=== PATIENT | male | born 1990 | race Caucasian/White ===

== ENCOUNTER 2020-07-23 15:56 | Emergency (ER) | payer OTHER ==
[2020-07-23] MEDS ORDERED: SODIUM CHLORIDE 1,000 ML IV STA ×2 (16:13→16:56)
[2020-07-23] MEDS ORDERED: ACETAMINOPHEN 1000 MG/100 ML VIAL (NON FORMULARY) IVPB ONE (16:13)
--- NOTE | 2020-07-23 16:16 | PDOC ---
History of Present Illness - General History Source: Patient Exam Limitations: No Limitations - History of Present Illness Initial Comments: 29 year old male with no PMH, no surgical history presented to ED for abdominal pain + diarrhea x4 days. Pt reported he developed diarrhea and diffuse abdominal pain, crampy/waxing/waning, no alleviating or aggravating factors, no radiation on monday morning. He reported he had a fever of 101F on Monday AM, but has not had a fever since Monday. Pt denied travel, antibiotic use, sick contacts. 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 Pt finished a course of Augmentin x2 weeks ago for a sinus infection. ROS General: admitted to fever. denied chills, generalized weakness. HEENT: denied sore throat, rhinorrhea, ear pain. Cardiovascular: denied chest pain, palpitations, syncope, diaphoresis. Respiratory: denied shortness of breath, cough, sputum production, hemoptysis. Gastrointestinal: admitted to abdominal pain, diarrhea. denied nausea, vomiting, diarrhea, constipation, blood in stool. Genitourinary: denied dysuria, increased urinary frequency, hematuria, urinary incontinence, flank pain. Back: denied back pain. Musculoskeletal: denied joint pain, muscle pain, joint swelling. Neurological: denied headache, dizziness, numbness, tingling, weakness. Integumentary: denied rash, laceration, abrasion. Hematologic/Lymphatic: denied bruising or bleeding. PE Constitutional: Well-nourished, Well-developed, appearing stated age. HEENT: head is normocephalic, atraumatic. EOMI. PERRLA. Neck: supple. Full ROM. Cardiovascular: regular heart rhythm. Normal S1 and S2. no murmurs. no pericardial friction rub. Respiratory: clear to auscultation bilaterally. no crackles, rhonchi or wheezing. no stridor. Gastrointestinal: soft, flat, diffusely tender. normal bowel sounds. no rebound, guarding, or masses. Extremities: peripheral pulses intact and equal. no lower extremity edema noted. Neurological: CN 2-12 grossly intact. moves all four extremities. Psych: awake, alert, oriented x3. follows commands. answers questions appropriately. <Estelita Mattson - Last Filed: 07/23/20 18:49> <Giovanna Arshad - Last Filed: 07/23/20 20:01> - General Chief Complaint: Pain Stated Complaint: ABD PAIN Time Seen by Provider: 07/23/20 16:01 Past History <Estelita Mattson - Last Filed: 07/23/20 18:49> <Giovanna Arshad - Last Filed: 07/23/20 20:01> - Medical History Allergies/Adverse Reactions: Allergies Allergy/AdvReac Type Severity Reaction Status Date / Time Sulfa (Sulfonamide Allergy Unknown Verified 07/23/20 15:59 Antibiotics) Home Medications: Ambulatory Orders Cetirizine HCl [Zyrtec] 10 mg PO DAILY 07/23/20 Ciprofloxacin HCl [Cipro] 500 mg PO BID 7 Days #14 tablet 07/23/20 Finasteride 1 mg PO DAILY 07/23/20 metroNIDAZOLE [Flagyl -] 500 mg PO QID #28 tablet 07/23/20 *Physical Exam - Vital Signs Last Vital Signs Temp Pulse Resp BP Pulse Ox 98.6 F 62 16 133/78 100 07/23/20 15:58 07/23/20 15:58 07/23/20 15:58 07/23/20 15:58 07/23/20 15:58 <Giovanna Arshad - Last Filed: 07/23/20 20:01> ED Treatment Course - LABORATORY CBC & Chemistry Diagram: 07/23/20 16:20 07/23/20 16:20 - RADIOLOGY Radiology Studies Ordered: Category Date Time Status ABDOMEN & PELVIS CT WITH CONTR [CT] Stat CT Scan 07/23/20 16:13 Ordered <Estelita Mattson - Last Filed: 07/23/20 18:49> - LABORATORY CBC & Chemistry Diagram: 07/23/20 16:20 07/23/20 16:20 - ADDITIONAL ORDERS Additional order review: Laboratory Results 07/23/20 07/23/20 17:15 16:20 Sodium 138 Potassium 3.9 Chloride 104 Carbon Dioxide 24 Anion Gap 10 BUN 12.0 Creatinine 0.9 Est GFR (CKD-EPI)AfAm 134.24 Est GFR (CKD-EPI)NonAf 115.82 Random Glucose 94 Calcium 9.3 Phosphorus 2.6 Magnesium 1.7 L Total Bilirubin 1.1 H AST 14 L ALT 13 Alkaline Phosphatase 45 Total Protein 6.9 Albumin 4.4 Lipase 49 L Urine Color Yellow Urine Appearance Clear Urine pH 7.0 Urine Protein Negative Urine Glucose (UA) Negative Urine Ketones Negative Urine Blood Trace-intact Urine Nitrite Negative Urine Bilirubin Negative Urine Urobilinogen 0.2 Ur Leukocyte Esterase Negative Urine RBC 0-2 07/23/20 16:20 RBC 4.70 MCV 86.6 MCHC 33.3 RDW 12.3 MPV 8.6 Neutrophils % 64.5 Lymphocytes % 14.6 Monocytes % 16.1 H Eosinophils % 4.2 Basophils % 0.6 - Medications Given in the ED: ED Medications Discontinued Medications Generic Name Dose Route Start Last Admin Trade Name Jwq PRN Reason Stop Dose Admin Acetaminophen 1,000 mg 07/23/20 16:13 07/23/20 16:45 Ofirmev Injection - IVPB 07/23/20 16:14 1,000 mg ONCE ONE Administration Sodium Chloride 1,000 mls @ 1,000 mls/hr 07/23/20 16:13 07/23/20 16:25 Normal Saline - IV 07/23/20 17:12 1,000 mls/hr ASDIR STA Administration Sodium Chloride 1,000 mls @ 1,000 mls/hr 07/23/20 16:56 07/23/20 17:35 Normal Saline - IV 07/23/20 17:55 1,000 mls/hr ASDIR STA Administration <Giovanna Arshad - Last Filed: 07/23/20 20:01> Medical Decision Making - Medical Decision Making 29 year old male with above PMH presented to ED for abdominal pain + diarrhea. Initial Vital Signs Temp Pulse Resp BP Pulse Ox 98.6 F 62 16 133/78 100 07/23/20 15:58 07/23/20 15:58 07/23/20 15:58 07/23/20 15:58 07/23/20 15:58 Orders Tylenol IV 1000 mg once Normal saline bolus [address] abdomen/pelvis + IV contrast Laboratory Last Values WBC 5.8 K/mm3 (4.0-10.8) 07/23/20 16:20 RBC 4.70 M/mm3 (4.00-5.60) 07/23/20 16:20 Hgb 13.6 GM/dl (11.7-16.9) 07/23/20 16:20 Hct 40.7 % (35.4-49) 07/23/20 16:20 MCV 86.6 fl (80-96) 07/23/20 16:20 MCH 28.9 pg (25.7-33.7) 07/23/20 16:20 MCHC 33.3 g/dl (32.0-35.9) 07/23/20 16:20 RDW 12.3 % (11.9-15.9) 07/23/20 16:20 Plt Count 145 K/MM3 (134-434) 07/23/20 16:20 MPV 8.6 fl (7.5-11.1) 07/23/20 16:20 Absolute Neuts (auto) 3.9 K/mm3 07/23/20 16:20 Neutrophils % 64.5 % (42.8-82.8) 07/23/20 16:20 Lymphocytes % 14.6 % (8-40) 07/23/20 16:20 Monocytes % 16.1 % (3.8-10.2) H 07/23/20 16:20 Eosinophils % 4.2 % (0-4.5) 07/23/20 16:20 Basophils % 0.6 % (0-2.0) 07/23/20 16:20 Sodium 138 mmol/L (136-145) 07/23/20 16:20 Potassium 3.9 mmol/L (3.5-5.1) 07/23/20 16:20 Chloride 104 mmol/L (98-107) 07/23/20 16:20 Carbon Dioxide 24 mmol/L (21-32) 07/23/20 16:20 Anion Gap 10 MMOL/L (8-16) 07/23/20 16:20 BUN 12.0 mg/dl (7-18) 07/23/20 16:20 Creatinine 0.9 mg/dl (0.55-1.3) 07/23/20 16:20 Est GFR (CKD-EPI)AfAm 134.24 07/23/20 16:20 Est GFR (CKD-EPI)NonAf 115.82 07/23/20 16:20 Random Glucose 94 mg/dl (74-106) 07/23/20 16:20 Calcium 9.3 mg/dl (8.5-10) 07/23/20 16:20 Phosphorus 2.6 mg/dl (2.5-4.9) 07/23/20 16:20 Magnesium 1.7 mg/dL (1.8-2.4) L 07/23/20 16:20 Total Bilirubin 1.1 mg/dl (0.2-1) H 07/23/20 16:20 AST 14 U/L (15-37) L 07/23/20 16:20 ALT 13 U/L (13-61) 07/23/20 16:20 Alkaline Phosphatase 45 U/L (45-117) 07/23/20 16:20 Total Protein 6.9 g/dl (6.4-8.2) 07/23/20 16:20 Albumin 4.4 g/dl (3.4-5.0) 07/23/20 16:20 Urine Color Yellow 07/23/20 17:15 Urine Appearance Clear 07/23/20 17:15 Urine pH 7.0 (4.5-8) 07/23/20 17:15 Urine Protein Negative (NEGATIVE) 07/23/20 17:15 Urine Glucose (UA) Negative (NEGATIVE) 07/23/20 17:15 Urine Ketones Negative (NEGATIVE) 07/23/20 17:15 Urine Blood Trace-intact (NEGATIVE) 07/23/20 17:15 Urine Nitrite Negative (NEGATIVE) 07/23/20 17:15 Urine Bilirubin Negative (NEGATIVE) 07/23/20 17:15 Urine Urobilinogen 0.2 (0.2-1.0) 07/23/20 17:15 Ur Leukocyte Esterase Negative (NEGATIVE) 07/23/20 17:15 Urine RBC 0-2 /hpf (0-4) 07/23/20 17:15 No leukocytosis. No anemia. Elevated monocytes. No KEVIN. Borderline low mag, 2L normal saline given. No transaminitis. Negative for UTI and hematuria. Pending CT scan and dispo. <Estelita Mattson - Last Filed: 07/23/20 18:49> Discharge - Discharge Information Problems reviewed: Yes <Estelita Mattson - Last Filed: 07/23/20 18:49> - Discharge Information Problems reviewed: Yes - Admission No <Giovanna Arshad - Last Filed: 07/23/20 20:01> - Discharge Information Clinical Impression/Diagnosis: Diarrhea Qualifiers: Diarrhea type: unspecified type Qualified Code(s): R19.7 - Diarrhea, unspecified Condition: Good Disposition: HOME - Additional Discharge Information Prescriptions: Ciprofloxacin HCl [Cipro] 500 mg PO BID 7 Days #14 tablet metroNIDAZOLE [Flagyl -] 500 mg PO QID #28 tablet - Patient Discharge Instructions Patient Printed Discharge Instructions: DI for Diarrhea and Traveler's Diarrhea -- Adult Additional Instructions: you came to the Ed for diarrhea. We did a cat scan in the Ed which shows colitis, which we will treat with antibiotics. You should return to the Ed for severe pain, fever, nausea or vomiting, new or worsening symptoms. - Post Discharge Activity Work/Back to School Note: Back to Work
[2020-07-23 16:39] VITALS: BP 133/78; PULSE 62; TEMP 98.6; BMI 23.1
[2020-07-23 16:42] LABS: BASO % 0.6 % (0-2.0); EOS % 4.2 % (0-4.5); HEMATOCRIT 40.7 % (35.4-49); HEMOGLOBIN 13.6 GM/dl (11.7-16.9); LYMPH % 14.6 % (8-40); MCH 28.9 pg (25.7-33.7); MCHC 33.3 g/dl (32.0-35.9); MEAN CELL VOLUME 86.6 fl (80-96); MEAN PLT VOLUME 8.6 fl (7.5-11.1); MONO % 16.1 % (3.8-10.2); NEUT % 64.5 % (42.8-82.8); PLATELET COUNT 145 K/MM3 (134-434); RDW 12.3 % (11.9-15.9); WHITE BLOOD COUNT 5.8 K/mm3 (4.0-10.8)
[2020-07-23] MEDS ORDERED: ACETAMINOPHEN INJECTION 100 ML IVPB ONE (16:42)
[2020-07-23 16:52] LABS: ALBUMIN 4.4 g/dl (3.4-5.0); BILIRUBIN,TOTAL 1.1 mg/dl (0.2-1); CALCIUM 9.3 mg/dl (8.5-10); CREATININE 0.9 mg/dl (0.55-1.3); MAGNESIUM 1.7 mg/dL (1.8-2.4); PHOSPHOROUS 2.6 mg/dl (2.5-4.9); POTASSIUM 3.9 mmol/L (3.5-5.1); TOT PROT 6.9 g/dl (6.4-8.2)
--- NOTE | 2020-07-23 17:13 | PDOC ---
Attending Attestation - Resident Resident Name: Estelita Mattson - ED Attending Attestation I have performed the following: I have examined & evaluated the patient, The case was reviewed & discussed with the resident, I agree w/resident's findings & plan - HPI HPI: 07/23/20 17:10 healthy 29y/o M p/w int abd pain and diarrhea for 5 days. had fever 101 on day 1, no fever since. reports generalized crampy abd pain followed by loose, mucousy non-bloody diarrhea then resolution of pain. no constant pain, no recent travel/diet change/sick contacts. completed course of amoxicillin 1-2 weeks ago for eye trauma? no h/o cdiff, no fam h/o IBD, no personal h/o gi issues. pt received outpt covid swab 3d ago after being febrile on day 1 and it was negative - Physicial Exam PE: 07/23/20 17:11 vss, afebrile well appearing, nad, mmm s1s2 rrr, ctab soft/nd. diffuse ttp without guarding/rebound/mass/hernia no rash - Medical Decision Making 07/23/20 17:12 29y/o M with abd pain/diarrhea for 4-5d, vss and non-toxic appearing without focal peritoneal findings. ? enteritis v colitis, infectious v inflammatory. labs ctap ivf, pain control reassess and dispo accordingly 07/23/20 18:04 labs wnl, no leukocytosis. ua clear lipase pending ctap pending 07/23/20 18:51 feels much better. ctap pending: is candidate for d/c +/- abx pending ct results. Patient was signed out to the oncoming ED physician to follow-up the results, reassess the patient, and disposition accordingly. <Jonny Castillo - Last Filed: 07/23/20 18:51> Discharge - Discharge Information Problems reviewed: Yes <Jonny Castillo - Last Filed: 07/23/20 18:51> - Admission No <Giovanna Arshad - Last Filed: 07/23/20 20:12> - Discharge Information Clinical Impression/Diagnosis: Diarrhea Qualifiers: Diarrhea type: unspecified type Qualified Code(s): R19.7 - Diarrhea, unspecified Condition: Good Disposition: HOME - Additional Discharge Information Prescriptions: Ciprofloxacin HCl [Cipro] 500 mg PO BID 7 Days #14 tablet metroNIDAZOLE [Flagyl -] 500 mg PO QID #28 tablet - Follow up/Referral Referrals: Daya Gonzalez MD [Staff Physician] - - Patient Discharge Instructions Patient Printed Discharge Instructions: DI for Diarrhea and Traveler's Diarrhea -- Adult Additional Instructions: you came to the Ed for diarrhea. We did a cat scan in the Ed which shows colitis, which we will treat with antibiotics. You should return to the Ed for severe pain, fever, nausea or vomiting, new or worsening symptoms. - Post Discharge Activity Work/Back to School Note: Back to Work
[2020-07-23] MEDS ORDERED: CIPROFLOXACIN 500 MG TABLET (RESTRICTED TO ID) PO ONE (19:54)
[2020-07-23] MEDS ORDERED: metroNIDAZOLE 250 MG TABLET PO ONE (19:54)
[2020-07-23] MEDS ORDERED: metroNIDAZOLE 250 MG TABLET ONE (19:57)
[2020-07-23] MEDS ORDERED: CIPROFLOXACIN 250 MG TABLET (RESTRICTED TO ID) PO ONE (19:57)
== END 2020-07-23 20:15 | disposition home or self-care (01) ==
LOC: FER 15:56
PROC: 3E0333Z Introduction of Anti-inflammatory into Peripheral Vein, Percutaneous Approach (ICD-10-PCS; principal; 2020-07-23)
PROC: 3E0337Z Introduction of Electrolytic and Water Balance Substance into Peripheral Vein, Percutaneous Approach (ICD-10-PCS; 2020-07-23)
DX: R19.7 Diarrhea, unspecified (principal)
CPT/HCPCS: 36415; 74177-TC; 80053; 81003; 81015; 83690; 83735; 84100; 85025; 87086; 99285-25; J0131; Q9967